=== PATIENT | female | born 1950 | race Caucasian/White ===

== ENCOUNTER → 2018-03-23 | Outpatient (CLI) | payer MEDICARE, OTHER ==
[~2018-03-23] MED LIST: ACCUPRIL20TAB PO; ADVAIR 100/28 DISKUS IH; ALBUTEROL0.09 MG/A1 IH; BENICAR 20MG TA20 MG PO; BENTYL 10MG10 MG/CAP PO; CELEBREX 200MG200 MG PO; CIPRO 500MG TA500 MG PO; FLAGYL500 MG PO; FUROSEMIDE PO; HCTZ 25MG25 MG PO; LEVSIN0.125 M1 PO; LORTAB 5/500 501 TAB PO; MOTRIN 600600 MG/TAB PO; NEXIUM 40MG40 MG PO; NEXIUM PO; PERCOCET 325 MG1 TA2 PO; PREVACID 30MG30 MG PO; PRILOSEC 20MG20 MG PO; PROTONIX 40MG T40 MG PO; PROVENTIL0.09 MG/A1 IH; SINGULAIR PO; ULTRAM 50MG TAB50 MG PO; VESICARE 5MG5 MG PO
== END ==
LOC: MC.RAD 11:20
DX: Z12.31 Encounter for screening mammogram for malignant neoplasm of breast (principal)

== ENCOUNTER → 2021-05-22 | Outpatient (CLI) | payer MEDICARE, OTHER | LOC: COL.RAD 07:45 | DX: K21.9 Gastro-esophageal reflux disease without esophagitis (principal); K58.8 Other irritable bowel syndrome; K63.89 Other specified diseases of intestine | CPT/HCPCS: A9541 ==